=== PATIENT | female | born 1975 | race Caucasian/White ===

== ENCOUNTER 2019-01-09 23:36 | Emergency (ER) | payer SELFPAY ==
[2019-01-10 00:16] VITALS: BP 121/64
--- NOTE | 2019-01-10 00:25 | ER Document Report ---
ED Medical Screen (RME) - General Chief Complaint: Numbness of Arm Stated Complaint: RIGHT ARM PAIN Time Seen by Provider: 01/10/19 00:13 Primary Care Provider: GADIEL SORTO PA-C [Primary Care Provider] - Follow up as needed Notes: Pt. stated she has pain in her right hand pinky, ring and middle fingers. Stated she has had this pain since September on and off. Stated her PCP gave her meloxicam for pain. Stated the pain has increased which is why she presents to the ED. Denies headache, numbness or tingling, neck pain, lightheadedness. I have greeted and performed a rapid initial assessment of this patient. A comprehensive ED assessment and evaluation of the patient, analysis of test results and completion of the medical decision making process will be conducted by additional ED providers. TRAVEL OUTSIDE OF THE [place] IN LAST 30 DAYS: No - Related Data Allergies/Adverse Reactions: No Known Allergies Allergy (Verified 05/13/16 08:22) Past Medical History - Past Medical History Cardiac Medical History: Denies: Hx Coronary Artery Disease, Hx Heart Attack, Hx Hypertension Pulmonary Medical History: Denies: Hx Asthma, Hx Bronchitis, Hx COPD, Hx Pneumonia, Hx Tuberculosis Neurological Medical History: Reports: Hx Migraine. Denies: Hx Cerebrovascular Accident, Hx Seizures Renal/ Medical History: Reports: Hx Kidney Stones Musculoskeltal Medical History: Reports Hx Arthritis Past Surgical History: Reports: Hx Abdominal Surgery - gastric bypass, Hx Cholecystectomy, Hx Gastric Bypass Surgery. Denies: Hx Hysterectomy, Hx Pacemaker - Immunizations Hx Diphtheria, Pertussis, Tetanus Vaccination: Yes Physical Exam - Vital signs Vitals: Temp Pulse Resp BP Pulse Ox 98.3 F 67 18 121/64 99 01/10/19 00:14 01/10/19 00:14 01/10/19 00:14 01/10/19 00:14 01/10/19 00:14 Course - Vital Signs Vital signs: Temp Pulse Resp BP Pulse Ox 98.3 F 67 18 121/64 99 01/10/19 00:14 01/10/19 00:14 01/10/19 00:14 01/10/19 00:14 01/10/19 00:14 Doctor's Discharge - Discharge Referrals: GADIEL SORTO PA-C [Primary Care Provider] - Follow up as needed
== END 2019-01-10 00:25 | disposition left against medical advice (07) ==
LOC: ER 23:36
DX: R20.0 Anesthesia of skin (principal); Z87.442 Personal history of urinary calculi; Z98.84 Bariatric surgery status; Z90.49 Acquired absence of other specified parts of digestive tract
CPT/HCPCS: 99281

== ENCOUNTER → 2019-01-20 | Outpatient (CLI) | payer OTHER ==
[2019-01-20 09:23] LABS: IRON(TIBC) 58.6 ug/dL (37-170)
[2019-01-20 09:58] LABS: FERRITIN 8.85 ng/mL (6.2-137.0)
[2019-01-20 10:32] LABS: FOLATE > 20.00 ng/mL (>2.76)
== END ==
LOC: OD 08:04
PROVIDERS: ATTEND Nurse Practitioner Family
DX: D51.8 Other vitamin B12 deficiency anemias (principal); Z98.84 Bariatric surgery status
CPT/HCPCS: 36415; 82607; 82728; 82746; 83540; 83550